=== PATIENT | female | born 1970 | race Caucasian/White ===

== ENCOUNTER 2022-12-29 15:00 | Outpatient (CLI) | payer OTHER ==
--- NOTE | 2022-12-29 16:44 | XRAY Report ---
PROCEDURE: Ankle 3 View LT INDICATIONS: PAIN OF LEFT ANKLE JOINT TECHNIQUE: 3 views of the ankle were acquired. COMPARISON: None. FINDINGS: Bones: No acute fractures or dislocations. Small ossification dorsal to the talonavicular joint is likely the sequela of remote prior trauma. Ankle mortise is normally aligned. No suspicious bony les ions. Soft tissues: Soft tissue edema surrounding the ankle is most prominent over the lateral malleolus. IMPRESSION: Nonspecific soft tissue edema. No acute osseous abnormality. If there is clinical concer n or persistent symptoms, additional imaging such as repeat radiographs or advanced imaging (e.g. CT, MRI) may be helpful for further evaluation. Reviewed by: Cesar Cameron MD on 12/29/2022 4:43 PM PDT Approved by: Cesar Cameron MD on 12/29/2022 4:43 PM PDT Station ID: [id number]
--- NOTE | 2022-12-29 16:45 | XRAY Report ---
PROCEDURE: Foot 3 View LT INDICATIONS: PAIN IN LFT FOOT TECHNIQUE: 3 views of the foot were acquired. COMPARISON: None. FINDINGS: Bones: No acute fractures or dislocations. Small ossification dorsal to the talonavicular joint is most likely sequela of remote prior trauma. No suspicious bony lesions. Soft tissues: Nonspecific soft tissue edema seen surrounding the ankle and hindfoot. IMPRESSION: No acute osseous abnormality. If there is clinical concern or persistent symptoms, additional imaging such as repeat radiographs or advanced imaging (e.g. CT, MRI) may be helpful for further evaluation. Reviewed by: Cesar Cameron MD on 12/29/2022 4:44 PM PDT Approved by: Cesar Cameron MD on 12/29/2022 4:44 PM PDT Station ID: [id number]
== END 2022-12-29 15:01 | disposition home or self-care (01) ==
LOC: DI 15:00
PROVIDERS: ATTEND Registered Nurse
DX: M25.572 Pain in left ankle and joints of left foot (principal); M79.672 Pain in left foot; R60.0 Localized edema